=== PATIENT | female | born 1995 | race Caucasian/White ===

== ENCOUNTER 2017-10-15 16:48 | Outpatient (CLI) | END 2017-10-15 19:15 | disposition home or self-care (01) ==

== ENCOUNTER 2017-10-24 14:09 | Outpatient (CLI) | END 2017-10-24 16:15 | disposition home or self-care (01) ==

== ENCOUNTER 2017-10-26 14:00 | Inpatient (IN) | END 2017-10-29 16:05 | disposition home or self-care (01) | DRG 775 ==

== ENCOUNTER 2019-03-18 19:10 | Emergency (ER) | payer MEDICAID ==
[~2019-03-18] VITALS: Ht 154.9 cm; Wt 64.1 kg
[~2019-03-18 19:10] MED LIST: IBUP-1542 PO; PNV1TABL4 PO
[2019-03-18 19:19] VITALS: Ht 154.9 cm; Wt 64.1 kg
[2019-03-18] MEDS ORDERED: SOD CHLORIDE 0.9% 1,000 ML IV STA (21:27)
[2019-03-18] MEDS ORDERED: ACETAMINOPHEN 325 MG TAB PO STA (21:27)
[2019-03-18] MEDS ORDERED: ONDANSETRON 4 MG INJ IV STA (21:27)
[2019-03-18] MEDS ORDERED: CEPHALEXIN 500 MG CAP PO ONE (23:00)
[2019-03-18] MEDS ORDERED: ACET325T33 PO (23:32)
[2019-03-18] MEDS ORDERED: ONDA4TAB14 PO (23:32)
[2019-03-18] MEDS ORDERED: CEPH-443 PO (23:40)
[2019-03-18 23:52] VITALS: BP 130/78; PULSE 88; RESP 20
--- NOTE | 2019-03-19 02:47 | ERD ---
ER Documentation Chief Complaint Chief Complaint states feels dehydrated, vomitted 1x, slight ap. denies vb. 18weeks pregnan HPI History of Present Illness: 23-year-old female who denies a past medical history coming in today with complaints of " feeling dry", one episode of vomiting today, upper abdominal pain. Patient reports being approximately 18 weeks . Denies vaginal bleeding, lower abdominal pain, genitourinary s ymptoms. Patient reports that she does not drink much water so she gets recurrent urinary tract infections. At home pharmacological/nonpharmacological treatment for symptoms: Denies Denies social concerns; Denies recent foreign travel ROS All systems reviewed and are negative except as per history of present illness. Medications Home Meds Active Scripts Cephalexin* (Keflex*) 500 Mg Capsule, 500 MG PO QID for URINE INFECTION for 7 Days, CAP Prov:MORENO HEAD NP 03/18/19 Acetaminophen* (Tylenol*) 325 Mg Tablet, 2 TAB PO Q6 PRN for PAIN AND OR ELEVATED TEMP, #20 TAB Prov:MORENO HEAD V SPINNING FRAME CHANGER 03/18/19 Ondansetron (Ondansetron Odt) 4 Mg Tab.rapdis, 4 MG PO Q8 PRN for NAUSEA AND/OR VOMITING, #12 TAB Prov:MORENO HEAD NP 03/18/19 Ibuprofen* (Ibuprofen*) 600 Mg Tablet, 600 MG PO Q6, #60 TAB 0 Refills Prov:YANA CASTILLO MD 10/28/17 Reported Medications Pnv Cmb#95/Ferrous Fumarate/Fa ( MULTIVITAMINS TABLET) 1 Each Tablet, 1 EACH PO DAILY 02/12/14 Allergies Allergies: Coded Allergies: No Known Allergies (Verified Allergy, Unknown, 02/12/14) PMhx/Soc Medical and Surgical Hx: pt denies Medical Hx, pt denies Surgical Hx History of Surgery: No Hx Miscellaneous Medical Probl: No Hx Alcohol Use: No Hx Substance Use: No Hx Tobacco Use: No Smoking Status: Never smoker FmHx Family History: No diabetes, No coronary disease Physical Exam Vitals Vital Signs Date Temp Pulse Resp B/P (MAP) Pulse Ox O2 O2 Flow FiO2 Time Delivery Rate 03/18/19 98.2 88 20 130/78 99 23:52 (95) 03/18/19 36.8 21:54 03/18/19 98.3 103 20 134/76 99 19:19 (95) Physical Exam Const: No acute distress Head: Atraumatic Eyes: Normal Conjunctiva ENT: Normal External Ears, Nose and Mouth. Neck: Full range of motion. No meningismus. Resp: Clear to auscultation bilaterally Cardio: Regular rate and rhythm, no murmurs Abd: Soft, non tender, non distended. Normal bowel sounds Skin: No petechiae or rashes Back: No midline or flank tenderness Ext: No cyanosis, or edema Neur: Awake and alert Psych: Normal Mood and Affect Result Diagram: 03/18/192134 Results 24 hrs Laboratory Tests Test 03/18/19 21:35 White Blood Count 9.8 10^3/ul Red Blood Count 4.74 10^6/ul Hemoglobin 13.7 g/dl Hematocrit 40.4 % Mean Corpuscular Volume 85.2 fl Mean Corpuscular Hemoglobin 28.9 pg Mean Corpuscular Hemoglobin Concent 33.9 g/dl Red Cell Distribution Width 13.2 % Platelet Count 209 10^3/UL Mean Platelet Volume 10.6 fl Immature Granulocytes % 1.200 % Neutrophils % 81.7 % Lymphocytes % 10.4 % Monocytes % 5.7 % Eosinophils % 0.7 % Basophils % 0.3 % Nucleated Red Blood Cells % 0.0 /100WBC Immature Granulocytes # 0.120 10^3/ul Neutrophils # 8.0 10^3/ul Lymphocytes # 1.0 10^3/ul Monocytes # 0.6 10^3/ul Eosinophils # 0.1 10^3/ul Basophils # 0.0 10^3/ul Nucleated Red Blood Cells # 0.0 10^3/ul Urine Color YELLOW Urine Clarity SLIGHTLY CLOUDY Urine pH 6.0 Urine Specific [place] 1.025 Urine Ketones NEGATIVE mg/dL Urine Nitrite POSITIVE mg/dL Urine Bilirubin NEGATIVE mg/dL Urine Urobilinogen NEGATIVE mg/dL Urine Leukocyte Esterase TRACE Melanie/ul Urine Microscopic RBC 1 /HPF Urine Microscopic WBC 18 /HPF Urine Bacteria FEW /HPF Urine Mucus FEW /HPF Urine Hemoglobin NEGATIVE mg/dL Urine Glucose NEGATIVE mg/dL Urine Total Protein NEGATIVE mg/dl Beta HCG, Quantitative 68412.0 mIU/ml Current Medications Medications Dose Sig/Kanika Start Time Status Last (Trade) Ordered Route PRN Stop Time Admin Dose Reason Admin Sodium 1,000 ml @ Q1H STAT 03/18/19 DC 03/18/19 Chloride 1,000 mls/hr IV 21:27 21:54 03/18/19 22:26 650 mg ONCE STAT 03/18/19 DC 03/18/19 Acetaminophen PO 21:27 21:54 (Tylenol 03/18/19 21:30 Tab) Ondansetron 4 mg ONCE STAT 03/18/19 DC HCl (Zofran IV 21:27 Inj) 03/18/19 21:30 Cephalexin 500 mg ONCE ONCE 03/18/19 DC 03/18/19 (Keflex) PO 23:00 23:12 03/18/19 23:03 Procedures/MDM ED course includes a thorough examination and history. Medications: Acetaminophen, Zofran, IV NS Imaging: OB pelvic ultrasound Labs: D, beta quantitative, urinalysis, type and Rh Low suspicion for life-threatening medical emergency. Low suspicion for acute abdominal emergency. Low suspicion for infectious process that requires IV/IM a ntibiotics. Low suspicion for acute SPEECH CORRECTION ASSISTANT emergency that requires immediate hospitalization or immediate surgical intervention. Otherwise healthy patient presenting with constellation of symptoms likely representing urinary tract infection during , vomiting, placenta previa as characterized by history, physical exam findings, lab findings, imaging findings. CBC: no e/o of systemic infection or severe anemia increased neutrophils. Beta quantitative is 18 K. Urinalysis positive for nitrites, trace leukocyte esterase, 18 WBCs, few bacteria. Blood type O+, no RhoGam indicated. Ultrasound results showing: IMPRESSION: 1. Single live intrauterine gestation of 18 weeks 6 days by ultrasound criteria. 2. Estimated date of delivery of 08/13/2019. 3. Appearance of placenta previa on the submitted images. Follow-up is recommended. RPTAT: HJES .Moi Galvez MD, MD Date Time Electronically viewed and signed by .Moi Galvez MD, MD on 03/18/2019 22:53 Although the patient does have a incidental finding of placenta previa on her ultrasound. Patient is in her second trimester without any vaginal bleeding. Disposition with strict follow-up with SPEECH CORRECTION ASSISTANT next week. Return precautions given. Educated patient that placenta previa can have increased risk of hemorrhage. Patient verbalizes understanding of discharge instructions. Patient reassessment @2300: Results reviewed. Orders placed for cephalexin for urinary tract infection. Patient regarding ultrasound results, patient is understanding as well as spouse. Patient denies nausea/vomiting. Patient reports "feeling better "patient hemodynamically stable. No respiratory distress, otherwise relatively well appearing and nontoxic. Disposition given. Patient educated on diagnoses, prescriptions, follow-up care, return precautions. Strict return precautions given for worsening condition; questions answered discharge. Disposition for discharge with followup in 2 days with PCP/clinic. Departure Diagnosis: Primary Impression: UTI (urinary tract infection) Urinary tract infection type: site unspecified Hematuria presence: without hematuria Qualified Codes: N39.0 - Urinary tract infection, site not specified Additional Impressions: Placenta previa Trimester: second trimester Qualified Codes: O44.02 - Complete placenta previa nos or without hemorrhage, second trimester Abdominal pain during Trimester: second trimester Qualified Codes: O26.892 - Other specified related conditions, second trimester; R10.9 - Unspecified abdominal pain Vomiting Condition: Stable Patient Instructions: Placenta Previa, Abdominal Pain, Early , Vomiting (6Y-Adult) [facility] Usted se carr hecho un examen mdico de control que le indica que no est en krista condicin que requiera tratamiento urgente en el Departamento de Emergencia. Un estudio ms profundo y el tratamiento de groves condicin pueden esperar sin ningn riesgo hasta que usted sea atendida/o en el consultorio de groves mdico o krista clnica. Es responsabilidad suya arreglar krista fernie para el seguimiento del raymundo. MANEJO DE CONDICIONES NO URGENTES EN EL FUTURO 1) Si usted tiene un mdico de atencin primaria: ted debera llamar a groves mdico de atencin primaria antes de venir al departamento de emergencia. Despus de las horas de consultorio, groves doctor o groves asociado/a est disponible por telfono. El mdico o enfermero de dory en el servicio telefnico puede asesorarle por shavon medio para atender el problema, o raymundo contrario se puede programar krista fernie. 2) Si usted no tiene un mdico de atencin primaria: Llame al mdico o clnica de referencia que aparece abajo nayana las horas de consultorio para hacer krista fernie para que le vean. CLINICAS: [place] [address] [phone] [facility] [phone] [facility] [phone] [place] [address] [phone] [place] [id number] [phone] [facility] [phone] [address] [facility]. [facility] () Usted se carr hecho un examen mdico de control que le indica que no est en krista condicin que requiera tratamiento urgente en el Departamento de Emergencia. Un estudio ms profundo y el tratamiento de groves condicin pueden esperar sin ningn riesgo hasta que usted sea atendida/o en el consultorio de rgoves mdico o krista clnica. Es responsabilidad suya arreglar krista fernie para el seguimiento del raymundo. MANEJO DE CONDICIONES NO URGENTES EN EL FUTURO 1) Si usted tiene un mdico de atencin primaria: Usted debera llamar a groves mdico de atencin primaria antes de venir al d epartamento de emergencia. Despus de las horas de consultorio, groves doctor o groves asociado/a est disponible por telfono. El mdico o enfermero de dory en el servicio telefnico puede asesorarle por shavon medio para atender el problema, o raymundo contrario se puede programar krista fernie. 2) Si usted no tiene un mdico de atencin primaria: Llame al mdico o condado institucions de referencia que aparece abajo nayana las horas de consultorio para hacer krista fernie para que le vean. SI USTED NO PUEDE PAGAR PARA ELYSIA UN MEDICO puede ir a: [facility] [address] [place] [address] [facility] [address] [place] [address] [facility] [address] [place] [address] [facility] [address] [place] [address] Additional Instructions: Thank you very much for allowing us to participate in your care. Your health and safety is our top priority at [facility]. It is important to read all discharge instructions and education provided in your discharge packet. *There was an abnormal finding on your ultrasound. It is very important to call your SPEECH CORRECTION ASSISTANT next week for a follow-up appointment. If you experience vaginal bleeding return to the emergency department immediately* Call your primary care doctor TOMORROW for an appointment during the next 2-4 days and bring all the information and medications prescribed. Have prescriptions filled and follow precisely the directions on the label. -Zofran is a medication for nausea/vomitting; take this medication as needed for nausea/vomiting/decreased appetite. --Acetaminophen as a medication for pain and/or fever. Take this medication as needed for mild to moderate pain. This medication will not cause drowsiness. This medication is safe during . -Cephalexin is an antibiotic; take this medication every day as listed on your prescription. You must complete the entire course of treatment that is listed on your prescription this is very important because it takes a certain number of days to kill the bacteria that is causing the infection. If the symptoms get worse and your provider is unavailable, return to the Emergency Department immediately. MORENO HEAD NP Mar 19, 2019 02:47
== END 2019-03-18 23:54 | disposition home or self-care (01) ==
LOC: FTE 19:10
DX: O23.42 Unspecified infection of urinary tract in pregnancy, second trimester (principal); O44.02 Complete placenta previa NOS or without hemorrhage, second trimester; R10.10 Upper abdominal pain, unspecified; Z3A.18 18 weeks gestation of pregnancy
CPT/HCPCS: 36415; 76805; 81001; 84702; 85025; 86900; 86901; J2405; J7030; Z7502; Z7610